=== PATIENT | female | born 1985 | race Caucasian/White ===

== ENCOUNTER 2022-03-11 12:25 | Emergency (ER) | payer SELFPAY ==
[2022-03-11 13:08] LABS: #Lymphocytes 1.5 thou/uL (1.20-3.40); #Monocytes 0.4 thou/uL (0.11-0.59); #Neutrophils 5.3 thou/uL (1.40-6.50); %Basophils 0.4 % (0.0-1.0); %Eosinophils 0.2 % (0.0-10.0); %Lymphocytes 20.9 % (21.0-51.0); %Neutrophils 72.4 % (42.0-75.0); Hemoglobin 14.1 g/dL (12.0-16.0); Mean Corpuscular HGB CONC 35.5 g/dL (32.0-36.0); Mean Corpuscular Hemoglobin 30.8 pg (27.0-31.0); Mean Corpuscular Volume 86.6 fl (78.0-98.0); Mean Platelet Volume 7.4 fL (7.4-10.4); Platelet Count 286 10x3/uL (130-400); RBC Distribution Width 11.4 % (11.5-14.5); Red Blood Cell (RBC) Count 4.57 mill/uL (4.20-5.40); White Blood Cell (WBC) Count 7.3 10x3/uL (4.8-10.8)
[2022-03-11 13:40] LABS: ALT (SGPT) 16 U/L (8-55); AST (SGOT) 14 U/L (5-34); Albumin 4.5 g/dL (3.5-5.0); Alkaline Phosphatase 44 U/L (40-110); Anion Gap 15 mmol/L (10-20); BUN (Urea Nitrogen) 8 mg/dL (7.0-18.7); Bilirubin, Total 0.6 mg/dL (0.2-1.2); Calc. Creatinine Clearance 0 mL/min (70-130); Calcium 9.6 mg/dL (7.8-10.44); Carbon Dioxide 25 mmol/L (22-29); Chloride 104 mmol/L (98-107); Estimated GFR 114; Globulin 3.1 g/dL (2.4-3.5); Glucose 111 mg/dL (70-105); Potassium 3.5 mmol/L (3.5-5.1); Protein, Total 7.6 g/dL (6.0-8.3); Sodium 140 mmol/L (136-145)
[2022-03-11] MEDS ORDERED: diphenhydrAMINE 50 MG/ML VIAL ONE (16:08)
[2022-03-11] MEDS ORDERED: Metoclopramide HCl 10 MG/2 ML VIAL ONE (16:08)
[2022-03-11] MEDS ORDERED: Acetaminophen 500 MG TAB ONE (16:08)
[2022-03-11 16:13] LABS: BHCG - Serum Negative (NEGATIVE); Pregs Control Background? CLEAR/WHITE (CLR/WHITE); Pregs Control Bar Appear? YES (CONTROL BAR)
[2022-03-11 16:16] LABS: MONO NEGATIVE CONTROL ZONE White (Negative) (White); MONO POSITIVE CONTROL Pink Line (Positive) (PINK/RED); Mononucleosis NEGATIVE (NEGATIVE)
== END 2022-03-11 18:52 | disposition home or self-care (01) ==
LOC: ERS 12:25
DX: R51.9 Headache, unspecified (principal); R11.0 Nausea; R06.02 Shortness of breath
CPT/HCPCS: 70450; 71045; 80053; 84443; 84484; 84703; 85025; 86308; 93005; 96361; 96374; 96375; J1200; J2765